=== PATIENT | male | born 1995 | race Caucasian/White ===

== ENCOUNTER 2023-05-29 09:27 | Emergency (ER) | payer SELFPAY ==
[2023-05-29] MEDS: Ketorolac 60 MG/2 ML SDV IM ONE (09:49)
== END 2023-05-29 09:56 | disposition home or self-care (01) ==
LOC: LB.ED 09:27
DX: M62.830 Muscle spasm of back (principal); V43.53XA Car driver injured in collision with pick-up truck in traffic accident, initial encounter; Y92.410 Unspecified street and highway as the place of occurrence of the external cause; Y93.89 Activity, other specified
CPT/HCPCS: 96372; 99283; J1885